=== PATIENT | male | born 1965 | race Caucasian/White ===

== ENCOUNTER 2020-10-07 11:05 | Outpatient (REF) | payer BC, SELFPAY ==
[2020-10-08 12:40] LABS: COVID-19 RT-PCR UVMMC Result Positive (Negative)
== END 2020-10-07 11:06 | disposition home or self-care (01) ==
LOC: NCHCN 11:05
PROVIDERS: PCP Physician Assistant; Visit Provider Internal Medicine
DX: Z20.822 Contact with and (suspected) exposure to COVID-19 (principal); R50.9 Fever, unspecified; R05 Cough
CPT/HCPCS: U0003